=== PATIENT | female | born 2000 | race Caucasian/White ===

== ENCOUNTER 2020-03-16 22:41 | Emergency (ER) | payer BC ==
[2020-03-16] MEDS ORDERED: methylPREDNISolone SOD SUCCI 125 MG/2 ML VIAL IV STA (23:03)
[2020-03-16] MEDS ORDERED: FAMOTIDINE 20 MG/2 ML VIAL IV STA (23:03)
[2020-03-16] MEDS ORDERED: SODIUM CHLORIDE 0.9% 500 ML 500 ML IV STA (23:03)
--- NOTE | 2020-03-16 23:17 | ED ---
Allergic Reaction HPI - General Chief complaint: Allergic Reaction Stated complaint: Throat Pain Time Seen by Provider: 03/16/20 22:50 Source: patient Mode of arrival: ambulatory Limitations: no limitations - History of Present Illness Initial Comments: Patient is a 19-year-old female presenting to emergency Department with complaints of a possible ALLERGIC reaction. Patient states she has been taking amoxicillin for a "throat infection" and just finished it yesterday. Patient states today she noticed a rash developing on her face and torso. Patient states she was tested for strep and mono one week ago before starting the antibiotics and they were both negative. Patient states her symptoms started as some left-sided lymph node enlargement, some mild throat irritation. She denies ever having a fever, no chills. She denies any abdominal pain, no nausea or vomiting. She denies any ear pain. She states she does have an appointment tomorrow with her doctor for a follow-up regarding this enlarged lymph node. Patient has no further complaints at this time. Upon arrival to the ER, her vital signs are stable. - Related Data Previous Rx's Medication Instructions Recorded predniSONE 50 mg PO DAILY 5 Days #5 tab 03/17/20 Allergies Allergy/AdvReac Type Severity Reaction Status Date / Time azithromycin [From Zithromax] Allergy Rash/Hives Verified 03/16/20 22:46 Review of Systems ROS Statement: Those systems with pertinent positive or pertinent negative responses have been documented in the HPI. ROS Other: All systems not noted in ROS Statement are negative. Past Medical History Past Medical History: No Reported History History of Any Multi-Drug Resistant Organisms: None Reported Past Surgical History: No Surgical Hx Reported Smoking Status: Never smoker Past Alcohol Use History: Occasional Past Drug Use History: Marijuana General Exam - General Exam Comments Initial Comments: GENERAL: Patient is well-developed and well-nourished. Patient is nontoxic and in no acute distress. HEAD: Atraumatic, normocephalic. EYES: Pupils equal round and reactive to light, extraocular movements intact, sclera anicteric, conjunctiva are normal. Eyelids were unremarkable. ENT: TMs normal, nares patent, oropharynx clear without exudates. Moist mucous membranes. NECK: Normal range of motion. Patient has an enlarged lymph node on the left submandibular, there is no overlying erythema, there is minor tenderness of palpation. LUNGS: Unlabored respirations. Breath sounds clear to auscultation bilaterally and equal. No wheezes rales or rhonchi. HEART: Regular rate and rhythm without murmurs, rubs or gallops. ABDOMEN: Soft, nontender, normoactive bowel sounds. No guarding, no rebound. No masses appreciated. : Deferred MUSCULOSKELETAL: Normal extremities with adequate strength and normal range of motion, no pitting or edema. No clubbing or cyanosis. NEUROLOGICAL: Patient is alert and oriented x 3. Motor and sensory are also intact. Cranial nerves II through XII grossly intact. Symmetrical smile. Normal speech, normal gait. PSYCH: Normal mood, normal affect. SKIN: Warm, Dry, normal turgor. Patient has a macular papular rash on her torso and face. It is slightly pruritic. Limitations: no limitations Course Vital Signs 03/16/20 03/16/20 03/17/20 22:43 22:55 00:41 Temperature 97.5 F L 98.0 F Pulse Rate 111 H 110 H Respiratory 18 18 16 Rate Blood Pressure 135/81 135/74 O2 Sat by Pulse 98 100 Oximetry Medical Decision Making - Medical Decision Making Patient is a 19-year-old female here for possible ALLERGIC reaction to amoxicillin that she just finished yesterday. She does have a macular papular rash on her torso and on her face. It is slightly pruritic. Patient does still have a large lymph node on her left submandibular area but states this is less swelling than it has been the past week. I did test her for strep and mono, sam th are negative. Patient was given IV steroids and Pepcid, she did take 50 mg of Benadryl just prior to arrival to the ER. Patient states her symptoms have improved, her rash did subside slightly. They will continue patient on steroids for the next couple days. She does have an appointment with her PCP tomorrow regarding the lymph node enlargement. She will continue with this appointment. Return parameters were discussed with the patient and she verbalized understanding. - Lab Data Lab Results 03/16/20 03/16/20 Range/Units 23:17 23:17 Heterophile Antibody Negative (Negative) Group A Strep Rapid Negative (Negative) Disposition Clinical Impression: Allergic reaction to drug, Lymphadenopathy of left cervical region Disposition: HOME SELF-CARE Condition: Stable Instructions (If sedation given, give patient instructions): Acute Rash (ED) Additional Instructions: Please return to the Emergency Department if symptoms worsen or any other concerns. Continue to follow-up with her PCP tomorrow regarding the enlarged lymph node. Rash is consistent with a drug ALLERGY rash. Continue with steroids over the next few days as discussed. Prescriptions: predniSONE 50 mg PO DAILY 5 Days #5 tab Is patient prescribed a controlled substance at d/c from ED?: No Referrals: None,Stated [Primary Care Provider] - 1-2 days
[2020-03-17 00:44] VITALS: BP 135/74; PULSE 110; RESP 16; TEMP 98
== END 2020-03-17 00:44 | disposition home or self-care (01) ==
LOC: EC 22:41
DX: R59.0 Localized enlarged lymph nodes (principal); T36.0X5A Adverse effect of penicillins, initial encounter; Z88.1 Allergy status to other antibiotic agents
CPT/HCPCS: 36415; 86308; 87081; 87430; 99283; 96374; 96375; J2930